=== PATIENT | female | born 1935 | race Caucasian/White ===

== ENCOUNTER 2022-11-12 10:22 | Emergency (ER) | payer OTHER ==
[~2022-11-12] VITALS: Ht 139.7 cm; Wt 38.2 kg
[2022-11-12 10:32] VITALS: BP 146/67; PULSE 74; RESP 16; TEMP 97.4; O2SAT 96
[2022-11-12 11:07] VITALS: BP 133/47; RESP 21; TEMP 97.3
[2022-11-12 11:19] VITALS: PULSE 63; O2SAT 97
--- NOTE | 2022-11-12 11:40 | NUR ---
Received the patient from Triage with her daughter present preesent, A/O X 4, C/O SOB, productive cough with foamy sputum, denies chest pain/discomfort. Patient is groomed, appropriately dressed, affect normal, interacts appropriately with tech writer and daughter at the bedside. Bedside CXR completed and nasal samples collected, and dropped off at the lab. Patient is stable on the stretcher in the lowest position, wheels locked, call [facility] within reach and awaiting disposition.
[2022-11-12] MEDS ORDERED: AZIT250T4 PO (12:36)
[2022-11-12] MEDS ORDERED: ALBU0.0912 INH (12:36)
[2022-11-12] MEDS ORDERED: AMOX-999 PO (12:36)
--- NOTE | 2022-11-12 12:48 | NUR ---
Patient remains the same with no decline in her status, seen by the provider and cleared for discharge home, discharge, instructions prescription sent to the patiet's preferred pharmacy. Patient eduated on medication adminstration, side effects and the importance of compliance, verbalized understanding. Patient stable, left ambulatory using a rollator with her daughter home.
[2022-11-12] MEDS ORDERED: CEFP200T20 PO (16:28)
== END 2022-11-12 12:48 | disposition home or self-care (01) ==
LOC: MED 10:22
DX: J18.9 Pneumonia, unspecified organism (principal); Z20.822 Contact with and (suspected) exposure to COVID-19; J45.909 Unspecified asthma, uncomplicated; I10 Essential (primary) hypertension; E78.5 Hyperlipidemia, unspecified; Z86.73 Personal history of transient ischemic attack (TIA), and cerebral infarction without residual deficits; Z86.69 Personal history of other diseases of the nervous system and sense organs; Z79.899 Other long term (current) drug therapy; Z79.2 Long term (current) use of antibiotics
CPT/HCPCS: 71045; 87426; 87804; 99284; Q0092